=== PATIENT | female | born 1950 | race Caucasian/White ===

== ENCOUNTER 2016-11-12 07:01 | Inpatient (IN) | payer MEDICARE, SELFPAY ==
[~2016-11-12 07:01] MED LIST: ASPIR 8181 M1 PO; COREG25 M1 PO; GLUCOPHAGE XR500 MG PO; GLUCOPHAGE500 M3 PO; HYDROCHLOROTHIA25 MG PO; LIPITOR20 M1 PO; LOPRESSOR25 MG/TA2 PO; LYRICA75 MG/CAP PO; NORCO 5/3251 TA1 PO; NYSTOP15 GM TP; PLAVIX75 M1 PO; PRINIVIL20 M1 PO; [UNRECOGNIZED DRUG - REMARK] PO
[2016-11-12 08:13] LABS: BASO % 0.4 % (0-2); EOS % 3.4 % (0-7); EOSINOPHIL ABSOLUTE COUNT 0.3 tho/cmm (0.0-0.7); HCT-HEMATOCRIT 40.2 % (34.0-49.0); HGB-HEMOGLOBIN 12.8 gm/dl (12.0-15.5); IMMATURE GRANULOCYTES ABSOLUTE 0.03 tho/cmm (0-0.03); IMMATURE GRANULOCYTES PERCENT 0.3 % (0-0.3); LYMPH % 14.7 % (20-45); LYMPH ABSOLUTE COUNT 1.4 tho/cmm (0.8-4.5); MCH (MEAN CORPUSCULAR HGB) 25.8 pg (28.0-32.0); MCHC MEAN CORPUSCULAR HGB CONC 31.8 % (32.0-36.0); MCV (MEAN CELL VOLUME) 80.9 fl (82.0-96.0); MEAN PLATELET VOLUME 9.7 cmc (9.4-12.4); MONO % 4.7 % (0-12); MONOCYTE ABSOLUTE COUNT 0.4 tho/cmm (0.0-1.2); NEUTROPHIL ABSOLUTE COUNT 7.1 tho/cmm (1.6-8.0); NEUTROPHIL-AUTOMATED 7.1 tho/cmm (1.6-8.0); NEUTROPHILS % 76.5 % (40-80); PLATELET COUNT 333 tho/cmm (150-450); RED BLOOD COUNT 4.97 mil/cmm (4.00-5.20); RED CELL DISTRIBUTION WIDTH 15.6 % (12.4-16.4); WHITE BLOOD COUNT 9.3 tho/cmm (4.0-10.0)
[2016-11-12 08:16] LABS: INR 1.1 INR (0.9-1.1); PROTHROMBIN TIME 12.5 SECONDS (9.0-13.6)
[2016-11-12 08:22] LABS: ANION GAP 14 mmol/L (0-20); BLOOD UREA NITROGEN 18 mg/dl (6-24); CALCIUM 8.8 mg/dl (8.5-10.5); CARBON DIOXIDE-VENOUS 24 mmol/L (22-32); CHLORIDE 109 mmol/l (96-110); CREATININE 1.16 mg/dl (0.50-1.10); GLUCOSE 185 mg/dL (70-110); POTASSIUM 4.5 mmol/L (3.7-5.1); SODIUM 142 mmol/L (135-145); eGFR VALUE FOR BLACK 57 mL/Min
[2016-11-14] MEDS ORDERED: NORCO 5-325 TA1 EACH PO (10:05)
== END 2016-11-14 11:00 | DRG 38 ==
LOC: SHSA 07:01 → ORW 09:44 → PACU 12:00 → PCUB 14:05
PROVIDERS: ADMIT Surgery Vascular Surgery
PROC: 03UL0KZ Supplement Left Internal Carotid Artery with Nonautologous Tissue Substitute, Open Approach (ICD-10-PCS; principal; 2016-11-12)
PROC: 3E0F7GC Introduction of Other Therapeutic Substance into Respiratory Tract, Via Natural or Artificial Opening (ICD-10-PCS; principal; 2016-11-12)
PROC: 03CL0ZZ Extirpation of Matter from Left Internal Carotid Artery, Open Approach (ICD-10-PCS; principal; 2016-11-12)
DX: I65.22 Occlusion and stenosis of left carotid artery (principal); Z68.41 Body mass index [BMI] 40.0-44.9, adult; I10 Essential (primary) hypertension; E11.9 Type 2 diabetes mellitus without complications; E78.5 Hyperlipidemia, unspecified; I25.10 Atherosclerotic heart disease of native coronary artery without angina pectoris; I73.9 Peripheral vascular disease, unspecified; I25.5 Ischemic cardiomyopathy; E66.9 Obesity, unspecified
CPT/HCPCS: C2628; J0690; J1580; J2250; J2270; J2405; J2720; J7030; J7040